=== PATIENT | male | born 1960 | race Native Hawaiian/Other Pacific Islander ===

== ENCOUNTER 2017-12-15 21:21 | Inpatient (IN) | payer OTHER ==
[2017-12-15 22:02] LABS: BASO # 0.1 K/uL (0.0-0.2); BASO % 1.1 % (0.0-2.0); EOS # 0.2 K/uL (0.0-0.7); EOS % 2.1 % (0.0-4.0); HEMOGLOBIN 16.1 g/dL (12.0-18.0); LYMPH # 2.2 K/uL (1.0-4.3); LYMPH % 26.4 % (20.0-40.0); MEAN CELL VOLUME 89.4 fL (80.0-94.0); MEAN CORPUSCULAR HEMOGLOBIN 31.6 pg (27.0-31.0); MEAN CORPUSCULAR HGB CONC 35.4 g/dL (33.0-37.0); MEAN PLATELET VOLUME 8.3 fL (7.2-11.7); MONO # 0.8 K/uL (0.0-0.8); MONO % 9.5 % (0.0-10.0); NEUT # 5.1 K/uL (1.8-7.0); NEUT % 60.9 % (50.0-75.0); NRBC % 0.2 % (0.0-2.0); RBC 5.1 Mil/uL (4.40-5.90); WHITE BLOOD COUNT 8.3 K/uL (4.8-10.8)
[2017-12-15] MEDS ORDERED: Sodium Chloride 0.9% 1,000 ML IV STA (22:07)
[2017-12-15 22:09] LABS: PROTHROMBIN TIME 11.3 SECONDS (9.7-12.2)
[2017-12-15 22:16] LABS: ALB/GLOB RATIO 1.1 (1.0-2.1); ALBUMIN 4.5 g/dL (3.5-5.0); ALT/SGPT 10 U/L (21-72); AST/SGOT 35 U/L (17-59); BLOOD UREA NITROGEN 14 mg/dL (9-20); CALCIUM 9.2 mg/dl (8.6-10.4); GFR AFRICAN-AMERICAN > 60; GFR NON-AFRICAN AMERICAN > 60
--- NOTE | 2017-12-15 22:49 | CT ---
EXAM: CT Head Without Intravenous Contrast EXAM DATE/TIME: 12/15/2017 9:48 PM CLINICAL HISTORY: 57 years old, male; Signs and symptoms; Altered mental status/memory loss and syncope and collapse; Additional info: S/P seizure, AMS, signs of head injury. TECHNIQUE: Axial computed tomography images of the head/brain without intravenous contrast. All CT scans at this facility use one or more dose reduction techniques, viz.: automated exposure control; ma/kV adjustment per patient size (including targeted exams where dose is matched to indication; i.e. head); or iterative reconstruction technique. COMPARISON: Prior images are not available for review. FINDINGS: Brain: There is prominence of sulci, gyri and ventricles. There is no midline shift. There is right temporal encephalomalacia with compensatory dilatation of the temporal horn of the right lateral ventricle.. There are no intra-axial or extra axial mass lesions or areas of hemorrhage. Bernstein-white differentiation is maintained. Ventricles: See above Bony structures: Cranial vault is intact. Soft tissues: unremarkable Sinuses: There is mucoperiosteal thickening in the maxillary sinuses left greater than right region there is mild mucoperiosteal thickening in ethmoid and frontal sinuses. Ears and mastoids: Middle ears are unremarkable. Mastoids are incompletely pneumatized. Orbits: Orbital contents are unremarkable. IMPRESSION: Mild atrophy; right temporal encephalomalacia; no bleed; sinus disease
[2017-12-15 22:50] LABS: SPERM URINE FEW /hpf; SQUAMOUS EPITHIAL < 1 /hpf (0-5); URINE BACTERIA FEW (<OCC); URINE BILIRUBIN NEGATIVE (NEGATIVE); URINE CLARITY Clear (Clear); URINE COLOR Yellow (YELLOW); URINE GLUCOSE (UA) NORMAL (Normal); URINE LEUKOCYTE ESTERASE NEG Leu/uL (Negative); URINE PROTEIN NEGATIVE (NEGATIVE); URINE UROBILINOGEN NORMAL mg/dL (0.2-1.0)
[2017-12-15 22:54] LABS: URINE BLOOD TRACE (NEGATIVE)
[2017-12-15 22:59] LABS: BARBITURATES, UR NEGATIVE (NEGATIVE); BENZODIAZEPINES, UR NEGATIVE (NEGATIVE); OPIATES, UR NEGATIVE (NEGATIVE); PHENCYCLIDINE, UR NEGATIVE (NEGATIVE)
--- NOTE | 2017-12-16 00:37 | C.PDOC ---
Time Seen by Provider: 12/15/17 21:40 Chief Complaint (Nursing): Seizure History Per: Patient, EMS History/Exam Limitations: clinical condition Recent Seizure Activity Began: Just Before Arrival Length Of Seizures (Duration): Unknown Quality Of Seizure: Generalized Post-ictal Period: Yes Severity: Severe Additional History Per: Prior Records Past Medical History Reviewed: Historical Data, Nursing Documentation, Vital Signs Vital Signs: Last Vital Signs Temp 97.4 F L 12/15/17 21:42 Pulse 121 H 12/15/17 21:42 Resp 20 12/15/17 21:42 BP 130/84 12/15/17 21:42 Pulse Ox 95 12/16/17 01:01 - Medical History PMH: CVA (Hemorrhagic?), Seizures Family History: States: Unknown Family Hx - Social History Hx Alcohol Use: Yes Hx Substance Use: No - Immunization History Hx Tetanus Toxoid Vaccination: No Hx Influenza Vaccination: No Hx Pneumococcal Vaccination: No Review Of Systems Review Of Systems: ROS cannot be obtained secondary to pt's inabilty to answer questions. Physical Exam - Physical Exam Appears: Toxic, Confused Skin: Diaphoretic Head: Other (Right frontal contusions) Eye(s): bilateral: PERRL, EOMI Neck: Normal ROM, No Midline Cervical Tenderness, No Step Off Deformity, Supple Cardiovascular: Rhythm Regular Respiratory: Normal Breath Sounds, No Accessory Muscle Use Gastrointestinal/Abdominal: Soft Extremity: Normal ROM, No Deformity, Other (abrasion on right hand) Neurological/Psych: Inappropriate Response To Command, Other (Moving all extremities) ED Course And Treatment - Laboratory Results Result Diagrams: 12/15/17 21:55 12/15/17 21:55 ECG: Interpreted By Me, Viewed By Me ECG Rhythm: Sinus Tachycardia, Nonspecific Changes Rate From EC O2 Sat by Pulse Oximetry: 95 Pulse Ox Interpretation: Normal - CT Scan/US CT head Other Rad Studies (CT/US): Read By Radiologist, Radiology Report Reviewed CT/US Interpretation: IMPRESSION: Mild atrophy; right temporal encephalomalacia ; no bleed; sinus. disease Progress Note: Dr. Alfaro (conservation or heritage architect Neurologist) contacted but she did not call back yet. Pt is now answering questions more appropriately, however he is still disoriented to time and has trouble with memory. Reevaluation Time: 01:00 Reassessment Condition: Improved - Physician Consult Information Physician Contacted: Derrek Hussein Outcome Of Conversation: He states that he is not available for consultation. Progress - Interventions Interventions:: Observation, Intravenous fluid - Data Reviewed Data Reviewed: Lab, Diagnostic imaging, EKG, Old records - Patient Status Patient status: Partially improved - Continuity of Care Discussed patient case with:: Patient, ED Nurse, Covering for PMD Disposition Discussed With DrLissy: Yvon Chowdhury Comment: He accepted pt on hospitalist service as pt's PMD is Dr. Ronen Angel. Doctor Will See Patient In The: Hospital Counseled Patient/Family Regarding: Studies Performed, Diagnosis - Disposition Disposition: HOSPITALIZED Disposition Time: 01:00 Condition: FAIR - Clinical Impression Clinical Impression: Post-ictal state, Seizure, Encephalomalacia on imaging study
[2017-12-16] MEDS ORDERED: Thiamine 100 mg/ml Inj IV STA (02:07)
--- NOTE | 2017-12-16 02:10 | CP.PCM.HP ---
<TessaJulio - Last Filed: 12/16/17 03:04> History of Present Illness - History of Present Illness History of Present Illness: CC: brought in by EMS for seizure activity PMD: Dr. Daniels on [facility] This patient is a 57yo M w/ a PMhx of hemorrhagic stroke, diagnosed at [facility], that was transferred to another center for treatment in 2016. Since then, he has not been on any medications as per the patient. He states that he drinks every day, 120oz of vodka, and 4-6 beers. He states the last thing he remembers before "waking up" in the hospital was drinking beers on Tuesday (it is now Tuesday at 1:50am seeing the patient). He states he has never had a seizure before...but upon further questioning he said he had one "a very long time ago" . The patient is extremely tangential. he is admitting to right arm pain, which he states started when he was working out. He works as a liquor delivery professional, walking deliveries only. I spoke to the roommate who states he drinks every day , and remembers seeing him leave for work around 4pm on 12/15 and was reportedly acting normally. He currently denies fevers/chills, PASCUAL, CP, SOB, abdominal pain, N/V/D, dysuria/freq/urg or lower extremity pain/swelling PMhx: Hemorrhagic stroke 2016 Meds: denies Surgeries: Denies allergies: denies FamHx: DM? father, "with many problems" Social: Works as a liquor delivery professional; as per patient independent in all IADL and ADLs, uses chewing tobacco daily and cannot state amount, and 120oz of vodka and 4 beers every day. States last drink was Tuesday. Present on Admission - Present on Admission Any Indicators Present on Admission: Yes History of DVT/PE: No History of Uncontrolled Diabetes: No Urinary Catheter: No Decubitus Ulcer Present: No Past Patient History - Past Social History Smoking Status: Never Smoked - NEUROLOGICAL Hx Seizures: Yes - PSYCHIATRIC Hx Substance Use: No - SURGICAL HISTORY Hx Surgeries: No - ANESTHESIA Hx Anesthesia: No Meds Allergies/Adverse Reactions: Allergies Allergy/AdvReac Type Severity Reaction Status Date / Time No Known Allergies Allergy Verified 12/15/17 21:47 Physical Exam - Constitutional Appears: Non-toxic, No Acute Distress, Chronically Ill - Head Exam Additional comments: cuts on lips, gums are black, unkempt hair - Eye Exam Eye Exam: EOMI, PERRL. absent: Scleral icterus Pupil Exam: PERRL - ENT Exam ENT Exam: Mucous Membranes Moist - Neck Exam Neck exam: Positive for: Full Rom. Negative for: Lymphadenopathy - Respiratory Exam Respiratory Exam: Clear to Auscultation Bilateral, NORMAL BREATHING PATTERN. absent: Rales, Rhonchi, Wheezes - Cardiovascular Exam Cardiovascular Exam: REGULAR RHYTHM, +S1, +S2 - GI/Abdominal Exam GI & Abdominal Exam: Normal Bowel Sounds, Soft. absent: Organomegaly, Pulsatile Mass, Rebound, Rigid, Tenderness - Extremities Exam Extremities exam: Positive for: full ROM. Negative for: calf tenderness, joint swelling, tenderness - Back Exam Back exam: NORMAL INSPECTION. absent: CVA tenderness (L), CVA tenderness (R), vertebral tenderness - Neurological Exam Additional comments: patient is not responding appropriately to questions is extremely tangential remembers being at home drinking Tuesday (interview takes place on Tuesday) and does not remember how he got to the hospital states he was at [facility] for 3 months and cannot remember what for patient is only oriented to person - Psychiatric Exam Psychiatric exam: Flat Affect - Skin Skin Exam: Warm Results - Vital Signs Recent Vital Signs: Last Vital Signs Temp 97.4 F L 12/15/17 21:42 Pulse 121 H 12/15/17 21:42 Resp 20 12/15/17 21:42 BP 130/84 12/15/17 21:42 Pulse Ox 95 12/16/17 01:13 - Labs Result Diagrams: 12/15/17 21:55 12/15/17 21:55 Labs: Laboratory Results - last 24 hr 12/15/17 12/15/17 12/15/17 21:33 21:55 21:55 WBC 8.3 RBC 5.10 Hgb 16.1 Hct 45.7 MCV 89.4 D MCH 31.6 H MCHC 35.4 RDW 13.0 Plt Count 267 MPV 8.3 Neut % (Auto) 60.9 Lymph % (Auto) 26.4 [place] % (Auto) 9.5 Eos % (Auto) 2.1 Baso % (Auto) 1.1 Neut # (Auto) 5.1 Lymph # (Auto) 2.2 [place] # (Auto) 0.8 Eos # (Auto) 0.2 Baso # (Auto) 0.1 PT INR APTT Sodium 139 Potassium 4.6 Chloride 104 Carbon Dioxide 14 L Anion Gap 26 H BUN 14 Creatinine 1.2 Est GFR ( Amer) > 60 Est GFR (Non-Af Amer) > 60 POC Glucose (mg/dL) 146 H Random Glucose 170 H Calcium 9.2 Magnesium 2.0 Total Bilirubin 1.0 AST 35 ALT 10 L D Alkaline Phosphatase 68 Troponin I < 0.0120 Total Protein 8.6 H Albumin 4.5 Globulin 4.1 H Albumin/Globulin Ratio 1.1 Urine Color Urine Clarity Urine pH Ur Specific [place] Urine Protein Urine Glucose (UA) Urine Ketones Urine Blood Urine Nitrate Urine Bilirubin Urine Urobilinogen Ur Leukocyte Esterase Urine WBC (Auto) Urine RBC (Auto) Ur Squamous Epith Cells Urine Bacteria Urine Sperm (Auto) Urine Opiates Screen Urine Methadone Screen Ur Barbiturates Screen Phenytoin Ur Phencyclidine Scrn Ur Amphetamines Screen U Benzodiazepines Scrn U Oth Cocaine Metabols U Cannabinoids Screen Alcohol, Quantitative < 10 12/15/17 12/15/17 12/15/17 21:55 21:55 22:35 WBC RBC Hgb Hct MCV MCH MCHC RDW Plt Count MPV Neut % (Auto) Lymph % (Auto) [place] % (Auto) Eos % (Auto) Baso % (Auto) Neut # (Auto) Lymph # (Auto) [place] # (Auto) Eos # (Auto) Baso # (Auto) PT 11.3 INR 1.0 APTT 28 Sodium Potassium Chloride Carbon Dioxide Anion Gap BUN Creatinine Est GFR ( Amer) Est GFR (Non-Af Amer) POC Glucose (mg/dL) Random Glucose Calcium Magnesium Total Bilirubin AST ALT Alkaline Phosphatase Troponin I Total Protein Albumin Globulin Albumin/Globulin Ratio Urine Color Yellow Urine Clarity Clear Urine pH 5.0 Ur Specific [place] 1.019 Urine Protein Negative Urine Glucose (UA) Normal Urine Ketones Negative Urine Blood Trace H Urine Nitrate Negative Urine Bilirubin Negative Urine Urobilinogen Normal Ur Leukocyte Esterase Neg Urine WBC (Auto) 1 Urine RBC (Auto) < 1 Ur Squamous Epith Cells < 1 Urine Bacteria Few H Urine Sperm (Auto) Few H Urine Opiates Screen Urine Methadone Screen Ur Barbiturates Screen Phenytoin < 3.0 L Ur Phencyclidine Scrn Ur Amphetamines Screen U Benzodiazepines Scrn U Oth Cocaine Metabols U Cannabinoids Screen Alcohol, Quantitative 12/15/17 22:35 WBC RBC Hgb Hct MCV MCH MCHC RDW Plt Count MPV Neut % (Auto) Lymph % (Auto) [place] % (Auto) Eos % (Auto) Baso % (Auto) Neut # (Auto) Lymph # (Auto) [place] # (Auto) Eos # (Auto) Baso # (Auto) PT INR APTT Sodium Potassium Chloride Carbon Dioxide Anion Gap BUN Creatinine Est GFR ( Amer) Est GFR (Non-Af Amer) POC Glucose (mg/dL) Random Glucose Calcium Magnesium Total Bilirubin AST ALT Alkaline Phosphatase Troponin I Total Protein Albumin Globulin Albumin/Globulin Ratio Urine Color Urine Clarity Urine pH Ur Specific [place] Urine Protein Urine Glucose (UA) Urine Ketones Urine Blood Urine Nitrate Urine Bilirubin Urine Urobilinogen Ur Leukocyte Esterase Urine WBC (Auto) Urine RBC (Auto) Ur Squamous Epith Cells Urine Bacteria Urine Sperm (Auto) Urine Opiates Screen Negative Urine Methadone Screen Negative Ur Barbiturates Screen Negative Phenytoin Ur Phencyclidine Scrn Negative Ur Amphetamines Screen Negative U Benzodiazepines Scrn Negative U Oth Cocaine Metabols Negative U Cannabinoids Screen Negative Alcohol, Quantitative Assessment & Plan - Assessment and Plan (Free Text) Assessment: 57yo M admitted for seizure activity New onset Seizures -consult Dr. Alfaro; appreciate recs -EEG; f/u results -seizure precautions Previous hemorrhagic stroke -patient is not on any medications currently for BP -no acute bleed on CT at this time AMS -RPR, HIV, vitamin profiles -CMP WNL glucose WNL -thiamine and folate daily; patient is daily heavy drinker -CIWA protocol -Librium PRN Q2H for EtOH withdrawal EtOH abuse/withdrawal -Librium PRN for EtOH -thiamine/folate daily Proph -does not need GI prophylaxis -SCDs -PT eval and treat Discussed and seen with Dr. Trenton Avila PGY2 Decision To Admit - Pt Status Changed To: Hospital Disposition Of: Inpatient - Admit Certification Admit to Inpatient:: After my assessment, the patient will require hospitalization for at least two midnights. This is because of the severity of symptoms shown, intensity of services needed, and/or the medical risk in this patient being treated as an outpatient. - InPatient: Physician Admission Certification:: patient will need more than 2 midnights` - . Bed Request Type: Regular Admitting Physician: Yvon Chowdhury <Yvon Chowdhury - Last Filed: 12/16/17 07:33> Results - Vital Signs Recent Vital Signs: Last Vital Signs Temp 97.4 F L 12/15/17 21:42 Pulse 63 12/16/17 06:48 Resp 16 12/16/17 06:48 BP 146/85 12/16/17 06:48 Pulse Ox 100 12/16/17 06:48 - Labs Result Diagrams: 12/15/17 21:55 12/15/17 21:55 Labs: Laboratory Results - last 24 hr 12/15/17 12/15/17 12/15/17 21:33 21:55 21:55 WBC 8.3 RBC 5.10 Hgb 16.1 Hct 45.7 MCV 89.4 D MCH 31.6 H MCHC 35.4 RDW 13.0 Plt Count 267 MPV 8.3 Neut % (Auto) 60.9 Lymph % (Auto) 26.4 [place] % (Auto) 9.5 Eos % (Auto) 2.1 Baso % (Auto) 1.1 Neut # (Auto) 5.1 Lymph # (Auto) 2.2 [place] # (Auto) 0.8 Eos # (Auto) 0.2 Baso # (Auto) 0.1 PT INR APTT Sodium 139 Potassium 4.6 Chloride 104 Carbon Dioxide 14 L Anion Gap 26 H BUN 14 Creatinine 1.2 Est GFR ( Amer) > 60 Est GFR (Non-Af Amer) > 60 POC Glucose (mg/dL) 146 H Random Glucose 170 H Calcium 9.2 Magnesium 2.0 Total Bilirubin 1.0 AST 35 ALT 10 L D Alkaline Phosphatase 68 Total Creatine Kinase Troponin I < 0.0120 Total Protein 8.6 H Albumin 4.5 Globulin 4.1 H Albumin/Globulin Ratio 1.1 Triglycerides Cholesterol LDL Cholesterol Direct HDL Cholesterol Folate TSH 3rd Generation Urine Color Urine Clarity Urine pH Ur Specific [place] Urine Protein Urine Glucose (UA) Urine Ketones Urine Blood Urine Nitrate Urine Bilirubin Urine Urobilinogen Ur Leukocyte Esterase Urine WBC (Auto) Urine RBC (Auto) Ur Squamous Epith Cells Urine Bacteria Urine Sperm (Auto) Urine Opiates Screen Urine Methadone Screen Ur Barbiturates Screen Phenytoin Ur Phencyclidine Scrn Ur Amphetamines Screen U Benzodiazepines Scrn U Oth Cocaine Metabols U Cannabinoids Screen Alcohol, Quantitative < 10 Hepatitis A IgM Ab Hep Bs Antigen Hep B Core IgM Ab Hepatitis C Antibody HIV 1&2 Antibody Screen 12/15/17 12/15/17 12/15/17 21:55 21:55 22:35 WBC RBC Hgb Hct MCV MCH MCHC RDW Plt Count MPV Neut % (Auto) Lymph % (Auto) [place] % (Auto) Eos % (Auto) Baso % (Auto) Neut # (Auto) Lymph # (Auto) [place] # (Auto) Eos # (Auto) Baso # (Auto) PT 11.3 INR 1.0 APTT 28 Sodium Potassium Chloride Carbon Dioxide Anion Gap BUN Creatinine Est GFR ( Amer) Est GFR (Non-Af Amer) POC Glucose (mg/dL) Random Glucose Calcium Magnesium Total Bilirubin AST ALT Alkaline Phosphatase Total Creatine Kinase Troponin I Total Protein Albumin Globulin Albumin/Globulin Ratio Triglycerides Cholesterol LDL Cholesterol Direct HDL Cholesterol Folate TSH 3rd Generation Urine Color Yellow Urine Clarity Clear Urine pH 5.0 Ur Specific [place] 1.019 Urine Protein Negative Urine Glucose (UA) Normal Urine Ketones Negative Urine Blood Trace H Urine Nitrate Negative Urine Bilirubin Negative Urine Urobilinogen Normal Ur Leukocyte Esterase Neg Urine WBC (Auto) 1 Urine RBC (Auto) < 1 Ur Squamous Epith Cells < 1 Urine Bacteria Few H Urine Sperm (Auto) Few H Urine Opiates Screen Urine Methadone Screen Ur Barbiturates Screen Phenytoin < 3.0 L Ur Phencyclidine Scrn Ur Amphetamines Screen U Benzodiazepines Scrn U Oth Cocaine Metabols U Cannabinoids Screen Alcohol, Quantitative Hepatitis A IgM Ab Hep Bs Antigen Hep B Core IgM Ab Hepatitis C Antibody HIV 1&2 Antibody Screen 12/15/17 12/16/17 12/16/17 22:35 05:51 05:51 WBC RBC Hgb Hct MCV MCH MCHC RDW Plt Count MPV Neut % (Auto) Lymph % (Auto) [place] % (Auto) Eos % (Auto) Baso % (Auto) Neut # (Auto) Lymph # (Auto) [place] # (Auto) Eos # (Auto) Baso # (Auto) PT INR APTT Sodium Potassium Chloride Carbon Dioxide Anion Gap BUN Creatinine Est GFR ( Amer) Est GFR (Non-Af Amer) POC Glucose (mg/dL) Random Glucose Calcium Magnesium Total Bilirubin AST ALT Alkaline Phosphatase Total Creatine Kinase Troponin I Total Protein Albumin Globulin Albumin/Globulin Ratio Triglycerides Cholesterol LDL Cholesterol Direct HDL Cholesterol Folate TSH 3rd Generation Urine Color Urine Clarity Urine pH Ur Specific [place] Urine Protein Urine Glucose (UA) Urine Ketones Urine Blood Urine Nitrate Urine Bilirubin Urine Urobilinogen Ur Leukocyte Esterase Urine WBC (Auto) Urine RBC (Auto) Ur Squamous Epith Cells Urine Bacteria Urine Sperm (Auto) Urine Opiates Screen Negative Urine Methadone Screen Negative Ur Barbiturates Screen Negative Phenytoin Ur Phencyclidine Scrn Negative Ur Amphetamines Screen Negative U Benzodiazepines Scrn Negative U Oth Cocaine Metabols Negative U Cannabinoids Screen Negative Alcohol, Quantitative Hepatitis A IgM Ab Negative Hep Bs Antigen Negative Hep B Core IgM Ab Negative Hepatitis C Antibody Negative HIV 1&2 Antibody Screen Negative 12/16/17 05:51 WBC RBC Hgb Hct MCV MCH MCHC RDW Plt Count MPV Neut % (Auto) Lymph % (Auto) [place] % (Auto) Eos % (Auto) Baso % (Auto) Neut # (Auto) Lymph # (Auto) [place] # (Auto) Eos # (Auto) Baso # (Auto) PT INR APTT Sodium Potassium Chloride Carbon Dioxide Anion Gap BUN Creatinine Est GFR ( Amer) Est GFR (Non-Af Amer) POC Glucose (mg/dL) Random Glucose Calcium Magnesium Total Bilirubin AST ALT Alkaline Phosphatase Total Creatine Kinase 546 H Troponin I Total Protein Albumin Globulin Albumin/Globulin Ratio Triglycerides 114 Cholesterol 249 H LDL Cholesterol Direct 194 H HDL Cholesterol 47 Folate > 20.0 TSH 3rd Generation 1.10 Urine Color Urine Clarity Urine pH Ur Specific [place] Urine Protein Urine Glucose (UA) Urine Ketones Urine Blood Urine Nitrate Urine Bilirubin Urine Urobilinogen Ur Leukocyte Esterase Urine WBC (Auto) Urine RBC (Auto) Ur Squamous Epith Cells Urine Bacteria Urine Sperm (Auto) Urine Opiates Screen Urine Methadone Screen Ur Barbiturates Screen Phenytoin Ur Phencyclidine Scrn Ur Amphetamines Screen U Benzodiazepines Scrn U Oth Cocaine Metabols U Cannabinoids Screen Alcohol, Quantitative Hepatitis A IgM Ab Hep Bs Antigen Hep B Core IgM Ab Hepatitis C Antibody HIV 1&2 Antibody Screen Attending/Attestation - Attestation I have personally seen and examined this patient.: Yes I have fully participated in the care of the patient.: Yes I have reviewed all pertinent clinical information: Yes Notes (Text): Assessment * Seizure episode, as per the patient prior episode before his hemorrhagic stroke, due to withdrawal from heavy alcoholism, alcoholism, alcohol withdrawal still suspected as patient had some temors, drinks about one large drink of hard liquor, and 2-4 beers, 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 Plan * Observe in tele, eeg, if eeg negative then antiseizure med debatable, but if + for epiletogenic focus then he will be candidate for anti seizure therapy. * Neurology consult * See orders for detail.
[2017-12-16] MEDS ORDERED: Thiamine 100 mg/ml Inj ONE (02:51)
[2017-12-16 06:15] LABS: HDL CHOLESTEROL 47 mg/dL (30-70)
[2017-12-16 06:19] LABS: LDL CHOLESTEROL 194 mg/dL (0-129)
[2017-12-16 06:39] LABS: HEPATITIS B SURFACE AG Negative (NEGATIVE)
[2017-12-16 06:45] LABS: HEPATITIS A IGM NEGATIVE (NEGATIVE); HEPATITIS B CORE AB NEGATIVE (NEGATIVE)
[2017-12-16 06:57] LABS: HEPATITIS C ANTIBODY NEGATIVE (NEGATIVE)
[2017-12-16 07:16] LABS: FOLATE > 20.0 ng/mL
--- NOTE | 2017-12-16 14:56 | CP.PCM.PN ---
<Niesha Shankar - Last Filed: 12/16/17 15:45> Subjective - Date & Time of Evaluation Date of Evaluation: 12/16/17 Time of Evaluation: 14:53 - Subjective Subjective: Patient seen and examined at bedside in ER early this morning before being taken upstairs. Patient was resting comfortably in bed smiling, saying he felt well. Patient immediately told me he was in [facility] as if he knew I was going to see if he was oriented and patient could state his name as well, however, when I asked him what day it was he started talking about vegetables and juice. Patient denied any fever, chills, chest pain, SOB, abdominal pain, N& V, diarrhea, constipation, lower extremity pain/swelling, and headaches. Unsure how reliable ROS is. Objective - Vital Signs/Intake and Output Vital Signs (last 24 hours): Temp Pulse Resp BP Pulse Ox 98.7 F 62 20 138/83 96 12/16/17 13:30 12/16/17 13:30 12/16/17 13:30 12/16/17 13:30 12/16/17 13:59 - Medications Medications: Current Medications Acetaminophen (Tylenol 325mg Tab) 650 mg PO Q6 PRN PRN Reason: Fever >100.4 F Chlordiazepoxide (Librium) 25 mg PO Q4H PRN PRN Reason: Tremors Cyanocobalamin (Vitamin B12 1000 Mcg Tab) 1,000 mcg PO DAILY [facility] Last Admin: 12/16/17 10:09 Dose: 1,000 mcg Folic Acid (Folic Acid) 1 mg PO DAILY [facility] Last Admin: 12/16/17 10:08 Dose: 1 mg Ondansetron HCl (Zofran Inj) 4 mg IVP Q6 PRN PRN Reason: Nausea/Vomiting Pneumococcal Polyvalent Vaccine (Pneumovax 23 Vaccine) 0.5 ml IM .ONCE ONE Stop: 12/19/17 10:01 Rosuvastatin Calcium (Crestor) 40 mg PO [facility] Thiamine HCl (Vitamin B1 Tab) 100 mg PO BID [facility] Last Admin: 12/16/17 10:09 Dose: 100 mg - Labs Labs: 12/15/17 21:55 12/15/17 21:55 PT 11.3 SECONDS (9.7-12.2) 12/15/17 21:55 INR 1.0 12/15/17 21:55 APTT 28 SECONDS (21-34) 12/15/17 21:55 - Constitutional Appears: Non-toxic, No Acute Distress, Confused - Head Exam Head Exam: ATRAUMATIC, NORMAL INSPECTION, NORMOCEPHALIC - Eye Exam Eye Exam: EOMI, Normal appearance, PERRL - ENT Exam ENT Exam: Mucous Membranes Moist - Neck Exam Neck Exam: Normal Inspection - Respiratory Exam Respiratory Exam: Clear to Ausculation Bilateral, NORMAL BREATHING PATTERN. absent: Rales, Rhonchi, Wheezes - Cardiovascular Exam Cardiovascular Exam: RRR, +S1, +S2. absent: Bradycardia, Tachycardia, Diastolic murmur, Gallop, Rubs, Murmur - GI/Abdominal Exam GI & Abdominal Exam: Soft, Normal Bowel Sounds. absent: Distended, Tenderness - Extremities Exam Extremities Exam: Normal Inspection. absent: Calf Tenderness, Pedal Edema - Neurological Exam Neurological Exam: Alert, Awake. absent: Oriented x3 Neuro motor strength exam: Left Upper Extremity: 5, Right Upper Extremity: 5, Left Lower Extremity: 5, Right Lower Extremity: 5 Additional comments: follows 1 step commands tangential speech - Psychiatric Exam Additional comments: seemed overly happy and confused - Skin Skin Exam: Dry, Intact, Normal Color, Warm Assessment and Plan - Assessment and Plan (Free Text) Plan: AMS * Psychiatry consult (Dr. Bellamy) - help appreciated * Neurology consult (Dr. Alfaro) - help appreciated * UDS negative * Alcohol level <10 * Phenytoin level <3 * RPR pending * HIV negative * Vitamin B12 <159 * Thiamine, folate, and B12 daily * Folate >20 * CMP WNL and not hypoglycemic * Lipid Panel: Trig 114 Chol 249 LDL 194 HDL 47 * Crestor 5 mg started * [facility] protocol * Librium PRN Q2H for EtOH withdrawal Questionable history of Seizures * Neurology consult (Dr. Alfaro) - help appreciated * EEG; f/u results * seizure precautions Previous hemorrhagic stroke * patient is not on any medications currently for BP * no acute bleed on CT at this time EtOH abuse/Potential withdrawal * Librium PRN for EtOH * thiamine/folate daily Prophylaxis * does not need GI prophylaxis * SCDs * PT eval and treat <Emmanuel Fuller - Last Filed: 12/16/17 18:38> Objective - Vital Signs/Intake and Output Vital Signs (last 24 hours): Temp Pulse Resp BP Pulse Ox 98.9 F 80 20 123/70 100 12/16/17 15:00 12/16/17 15:00 12/16/17 15:00 12/16/17 15:00 12/16/17 15:00 - Medications Medications: Current Medications Acetaminophen (Tylenol 325mg Tab) 650 mg PO Q6 PRN PRN Reason: Fever >100.4 F Chlordiazepoxide (Librium) 25 mg PO Q4H PRN PRN Reason: Tremors Cyanocobalamin (Vitamin B12 1000 Mcg Tab) 1,000 mcg PO DAILY [facility] Last Admin: 12/16/17 10:09 Dose: 1,000 mcg Folic Acid (Folic Acid) 1 mg PO DAILY [facility] Last Admin: 12/16/17 10:08 Dose: 1 mg Ondansetron HCl (Zofran Inj) 4 mg IVP Q6 PRN PRN Reason: Nausea/Vomiting Pneumococcal Polyvalent Vaccine (Pneumovax 23 Vaccine) 0.5 ml IM .ONCE ONE Stop: 12/19/17 10:01 Rosuvastatin Calcium (Crestor) 10 mg PO [facility] Thiamine HCl (Vitamin B1 Tab) 100 mg PO BID [facility] Last Admin: 12/16/17 18:21 Dose: 100 mg - Labs Labs: 12/15/17 21:55 12/15/17 21:55 PT 11.3 SECONDS (9.7-12.2) 12/15/17 21:55 INR 1.0 12/15/17 21:55 APTT 28 SECONDS (21-34) 12/15/17 21:55 Attending/Attestation - Attestation I have personally seen and examined this patient.: Yes I have fully participated in the care of the patient.: Yes I have reviewed all pertinent clinical information, including history, physical exam and plan: Yes Notes (Text): 12/16/17 18:34 Patient was seen and examined at 4:00 PM Exam, assessment and plan were gone over with the resident. When he was asked what he remembers before coming to hospital he stated that he does not remember anything after Tuesday. When asked how he got the bruising (which appear to be rug cox) on his right frontal area and the left posterior lateral wrist, he stated that he fell on Tuesday but then could not provide any details as to what he was doing or how he fell. He believes that he has been in the hospital since Tuesday. Although he identified that he is in a hospital, he can not provide details as to why he is here or how he came to be here. He could not provide accurate day, date, year. 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 Emmanuel Fuller D.O.
--- NOTE | 2017-12-16 16:59 | CP.PCM.CON ---
History of Present Illness - History of Present Illness History of Present Illness: is a 57 yr old right handed male who has a pmh of hemorrhagic stroke in 2016, alcoholism, who presented to [facility] with several breakthrought seizures. Patient states that he drinks daily with 120 ounces of vodka with 6 beers as well. The last thing he remembers is drinkin on Tuesday, as well as right arm pain. Of note, he works a liquor delivery nurse, walking deliveries daily. He was last seen leaving work on 12/15/17 and was acting normally, but now he is quite tangential. Denies headache, fever, blurriness of vision. PMhx: Hemorrhagic stroke 2016 Meds: denies Surgeries: Denies allergies: denies FamHx: DM? father, "with many problems" Social: Works as a liquor delivery nurse; as per patient independent in all IADL and ADLs, uses chewing tobacco daily and cannot state amount, and 120oz of vodka and 4 beers every day. States last drink was Tuesday. on exam: aaox3. Has difficulty with the year but corrects. PERRL. Cn 2-12 normal. no facial asymmetry. motor: tone strength normal. sensory: intact, ft, pin. Gait: wide based, no ataxia. bilateral tremor noted. symmetric reflexes. Past Patient History - Past Social History Smoking Status: Never Smoked - NEUROLOGICAL Hx Seizures: Yes - PSYCHIATRIC Hx Substance Use: No - SURGICAL HISTORY Hx Surgeries: No - ANESTHESIA Hx Anesthesia: No Meds Allergies/Adverse Reactions: Allergies Allergy/AdvReac Type Severity Reaction Status Date / Time No Known Allergies Allergy Verified 12/15/17 21:47 - Medications Medications: Current Medications Acetaminophen (Tylenol 325mg Tab) 650 mg PO Q6 PRN PRN Reason: Fever >100.4 F Chlordiazepoxide (Librium) 25 mg PO Q4H PRN PRN Reason: Tremors Cyanocobalamin (Vitamin B12 1000 Mcg Tab) 1,000 mcg PO DAILY [facility] Last Admin: 12/16/17 10:09 Dose: 1,000 mcg Folic Acid (Folic Acid) 1 mg PO DAILY [facility] Last Admin: 12/16/17 10:08 Dose: 1 mg Ondansetron HCl (Zofran Inj) 4 mg IVP Q6 PRN PRN Reason: Nausea/Vomiting Pneumococcal Polyvalent Vaccine (Pneumovax 23 Vaccine) 0.5 ml IM .ONCE ONE Stop: 12/19/17 10:01 Rosuvastatin Calcium (Crestor) 10 mg PO HS [facility] Thiamine HCl (Vitamin B1 Tab) 100 mg PO BID [facility] Last Admin: 12/16/17 10:09 Dose: 100 mg Results - Vital Signs Recent Vital Signs: Last Vital Signs Temp 98.9 F 12/16/17 15:00 Pulse 80 12/16/17 15:00 Resp 20 12/16/17 15:00 BP 123/70 12/16/17 15:00 Pulse Ox 100 12/16/17 15:00 - Labs Result Diagrams: 12/17/17 07:07 12/17/17 07:07 Labs: Laboratory Results - last 24 hr 12/15/17 12/15/17 12/15/17 21:33 21:55 21:55 WBC 8.3 RBC 5.10 Hgb 16.1 Hct 45.7 MCV 89.4 D MCH 31.6 H MCHC 35.4 RDW 13.0 Plt Count 267 MPV 8.3 Neut % (Auto) 60.9 Lymph % (Auto) 26.4 [place] % (Auto) 9.5 Eos % (Auto) 2.1 Baso % (Auto) 1.1 Neut # (Auto) 5.1 Lymph # (Auto) 2.2 [place] # (Auto) 0.8 Eos # (Auto) 0.2 Baso # (Auto) 0.1 PT INR APTT Sodium 139 Potassium 4.6 Chloride 104 Carbon Dioxide 14 L Anion Gap 26 H BUN 14 Creatinine 1.2 Est GFR ( Amer) > 60 Est GFR (Non-Af Amer) > 60 POC Glucose (mg/dL) 146 H Random Glucose 170 H Hemoglobin A1c Calcium 9.2 Magnesium 2.0 Total Bilirubin 1.0 AST 35 ALT 10 L D Alkaline Phosphatase 68 Total Creatine Kinase Troponin I < 0.0120 Total Protein 8.6 H Albumin 4.5 Globulin 4.1 H Albumin/Globulin Ratio 1.1 Triglycerides Cholesterol LDL Cholesterol Direct HDL Cholesterol Vitamin B12 Folate TSH 3rd Generation Urine Color Urine Clarity Urine pH Ur Specific Norman Urine Protein Urine Glucose (UA) Urine Ketones Urine Blood Urine Nitrate Urine Bilirubin Urine Urobilinogen Ur Leukocyte Esterase Urine WBC (Auto) Urine RBC (Auto) Ur Squamous Epith Cells Urine Bacteria Urine Sperm (Auto) Urine Opiates Screen Urine Methadone Screen Ur Barbiturates Screen Phenytoin Ur Phencyclidine Scrn Ur Amphetamines Screen U Benzodiazepines Scrn U Oth Cocaine Metabols U Cannabinoids Screen Alcohol, Quantitative < 10 Hepatitis A IgM Ab Hep Bs Antigen Hep B Core IgM Ab Hepatitis C Antibody HIV 1&2 Antibody Screen 12/15/17 12/15/17 12/15/17 21:55 21:55 22:35 WBC RBC Hgb Hct MCV MCH MCHC RDW Plt Count MPV Neut % (Auto) Lymph % (Auto) [place] % (Auto) Eos % (Auto) Baso % (Auto) Neut # (Auto) Lymph # (Auto) [place] # (Auto) Eos # (Auto) Baso # (Auto) PT 11.3 INR 1.0 APTT 28 Sodium Potassium Chloride Carbon Dioxide Anion Gap BUN Creatinine Est GFR ( Amer) Est GFR (Non-Af Amer) POC Glucose (mg/dL) Random Glucose Hemoglobin A1c Calcium Magnesium Total Bilirubin AST ALT Alkaline Phosphatase Total Creatine Kinase Troponin I Total Protein Albumin Globulin Albumin/Globulin Ratio Triglycerides Cholesterol LDL Cholesterol Direct HDL Cholesterol Vitamin B12 Folate TSH 3rd Generation Urine Color Yellow Urine Clarity Clear Urine pH 5.0 Ur Specific Norman 1.019 Urine Protein Negative Urine Glucose (UA) Normal Urine Ketones Negative Urine Blood Trace H Urine Nitrate Negative Urine Bilirubin Negative Urine Urobilinogen Normal Ur Leukocyte Esterase Neg Urine WBC (Auto) 1 Urine RBC (Auto) < 1 Ur Squamous Epith Cells < 1 Urine Bacteria Few H Urine Sperm (Auto) Few H Urine Opiates Screen Urine Methadone Screen Ur Barbiturates Screen Phenytoin < 3.0 L Ur Phencyclidine Scrn Ur Amphetamines Screen U Benzodiazepines Scrn U Oth Cocaine Metabols U Cannabinoids Screen Alcohol, Quantitative Hepatitis A IgM Ab Hep Bs Antigen Hep B Core IgM Ab Hepatitis C Antibody HIV 1&2 Antibody Screen 12/15/17 12/16/17 12/16/17 22:35 05:51 05:51 WBC RBC Hgb Hct MCV MCH MCHC RDW Plt Count MPV Neut % (Auto) Lymph % (Auto) [place] % (Auto) Eos % (Auto) Baso % (Auto) Neut # (Auto) Lymph # (Auto) [place] # (Auto) Eos # (Auto) Baso # (Auto) PT INR APTT Sodium Potassium Chloride Carbon Dioxide Anion Gap BUN Creatinine Est GFR ( Amer) Est GFR (Non-Af Amer) POC Glucose (mg/dL) Random Glucose Hemoglobin A1c Calcium Magnesium Total Bilirubin AST ALT Alkaline Phosphatase Total Creatine Kinase Troponin I Total Protein Albumin Globulin Albumin/Globulin Ratio Triglycerides Cholesterol LDL Cholesterol Direct HDL Cholesterol Vitamin B12 Folate TSH 3rd Generation Urine Color Urine Clarity Urine pH Ur Specific [place] Urine Protein Urine Glucose (UA) Urine Ketones Urine Blood Urine Nitrate Urine Bilirubin Urine Urobilinogen Ur Leukocyte Esterase Urine WBC (Auto) Urine RBC (Auto) Ur Squamous Epith Cells Urine Bacteria Urine Sperm (Auto) Urine Opiates Screen Negative Urine Methadone Screen Negative Ur Barbiturates Screen Negative Phenytoin Ur Phencyclidine Scrn Negative Ur Amphetamines Screen Negative U Benzodiazepines Scrn Negative U Oth Cocaine Metabols Negative U Cannabinoids Screen Negative Alcohol, Quantitative Hepatitis A IgM Ab Negative Hep Bs Antigen Negative Hep B Core IgM Ab Negative Hepatitis C Antibody Negative HIV 1&2 Antibody Screen Negative 12/16/17 12/16/17 12/16/17 05:51 05:51 16:16 WBC RBC Hgb Hct MCV MCH MCHC RDW Plt Count MPV Neut % (Auto) Lymph % (Auto) [place] % (Auto) Eos % (Auto) Baso % (Auto) Neut # (Auto) Lymph # (Auto) [place] # (Auto) Eos # (Auto) Baso # (Auto) PT INR APTT Sodium Potassium Chloride Carbon Dioxide Anion Gap BUN Creatinine Est GFR ( Amer) Est GFR (Non-Af Amer) POC Glucose (mg/dL) 93 Random Glucose Hemoglobin A1c 5.6 Calcium Magnesium Total Bilirubin AST ALT Alkaline Phosphatase Total Creatine Kinase 546 H Troponin I Total Protein Albumin Globulin Albumin/Globulin Ratio Triglycerides 114 Cholesterol 249 H LDL Cholesterol Direct 194 H HDL Cholesterol 47 Vitamin B12 < 159 L Folate > 20.0 TSH 3rd Generation 1.10 Urine Color Urine Clarity Urine pH Ur Specific [place] Urine Protein Urine Glucose (UA) Urine Ketones Urine Blood Urine Nitrate Urine Bilirubin Urine Urobilinogen Ur Leukocyte Esterase Urine WBC (Auto) Urine RBC (Auto) Ur Squamous Epith Cells Urine Bacteria Urine Sperm (Auto) Urine Opiates Screen Urine Methadone Screen Ur Barbiturates Screen Phenytoin Ur Phencyclidine Scrn Ur Amphetamines Screen U Benzodiazepines Scrn U Oth Cocaine Metabols U Cannabinoids Screen Alcohol, Quantitative Hepatitis A IgM Ab Hep Bs Antigen Hep B Core IgM Ab Hepatitis C Antibody HIV 1&2 Antibody Screen - Imaging and Cardiology CT scan - head Status: Image reviewed by me Additional comment: ct head shows right temporal encephalomalacia, no stroke, no hemorrhage. Assessment & Plan - Assessment and Plan (Free Text) Assessment: 57 yr old male with baseline focus of intracerebral pathology who would benefit from starting antiepileptic medications. i will recommend starting depakote at 500 mg bid, and load today with IV 1000 mg depakote one time. This should control his epilepsy. In terms of managing alcohol withdrawal will defer to the medical team. Plan: 1. Continue depakote 500 mg bid 2. EEG on Tuesday. DR. Dominic MD, DPN
--- NOTE | 2017-12-16 23:28 | CARD ---
APPROVED REPORT EKG Measurement Heart [id number] ID [id number] <Conclusion> Sinus tachycardia Possible Left atrial enlargement Borderline ECG
[2017-12-17 07:23] LABS: BASO % 0.8 % (0.0-2.0); EOS # 0.1 K/uL (0.0-0.7); EOS % 1.4 % (0.0-4.0); HEMOGLOBIN 15.6 g/dL (12.0-18.0); LYMPH # 1.3 K/uL (1.0-4.3); LYMPH % 22.8 % (20.0-40.0); MEAN CELL VOLUME 88.7 fL (80.0-94.0); MEAN CORPUSCULAR HEMOGLOBIN 31.6 pg (27.0-31.0); MEAN CORPUSCULAR HGB CONC 35.6 g/dL (33.0-37.0); MEAN PLATELET VOLUME 8.4 fL (7.2-11.7); MONO # 0.6 K/uL (0.0-0.8); MONO % 9.7 % (0.0-10.0); NEUT # 3.8 K/uL (1.8-7.0); NEUT % 65.3 % (50.0-75.0); RBC 4.93 Mil/uL (4.40-5.90); RED CELL DISTRIBUTION WIDTH 13.2 % (11.5-14.5); WHITE BLOOD COUNT 5.9 K/uL (4.8-10.8)
[2017-12-17 07:29] LABS: PROTHROMBIN TIME 11.3 SECONDS (9.7-12.2)
[2017-12-17 07:42] LABS: ALB/GLOB RATIO 1.1 (1.0-2.1); ALT/SGPT 14 U/L (21-72); AST/SGOT 29 U/L (17-59); BLOOD UREA NITROGEN 11 mg/dL (9-20); CALCIUM 9.1 mg/dl (8.6-10.4); GFR AFRICAN-AMERICAN > 60; GFR NON-AFRICAN AMERICAN > 60
[2017-12-17] MEDS ORDERED: Divalproex 500 mg DR Tab PO STA (14:29)
--- NOTE | 2017-12-17 16:44 | CP.PCM.PN ---
Addendum entered and electronically signed by Lisa Welch 12/17/17 16:50 : Right Hand Pain f/u hand xray Original Note: <Lisa Welch - Last Filed: 12/17/17 16:40> Subjective - Date & Time of Evaluation Date of Evaluation: 12/17/17 Time of Evaluation: 07:00 - Subjective Subjective: PGY1- Progress note Patient seen and examined at bedside with Dr. Fuller who speaks patient's [place] language. Patient is still confused and it takes multiple tries for patient to be able to say the date after it is told to him. 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 As per Dada, ever since patient's stroke 3 years ago patient is very forgetful and often doesn't answer appropriately to questions asked. Patient complains of right hand pain after his fall, but has full ROM. Patient denies any chest pain , shortness of breath, abdominal pain, nausea, vomiting, constipation, or diarrhea. Objective - Vital Signs/Intake and Output Vital Signs (last 24 hours): Temp Pulse Resp BP Pulse Ox 98.2 F 59 L 20 143/88 98 12/17/17 08:50 12/17/17 08:50 12/17/17 08:50 12/17/17 08:50 12/17/17 16:33 Intake and Output: 12/17/17 12/17/17 06:59 18:59 Intake Total 360 150 Output Total 250 Balance 110 150 - Medications Medications: Current Medications Acetaminophen (Tylenol 325mg Tab) 650 mg PO Q6 PRN PRN Reason: Fever >100.4 F Chlordiazepoxide (Librium) 25 mg PO Q4H PRN PRN Reason: Tremors Cyanocobalamin (Vitamin B12 1000 Mcg Tab) 1,000 mcg PO DAILY [facility] Last Admin: 12/17/17 10:23 Dose: 1,000 mcg Divalproex Sodium (Depakote Dr) 500 mg PO BID [facility] Folic Acid (Folic Acid) 1 mg PO DAILY [facility] Last Admin: 12/17/17 10:23 Dose: 1 mg Ondansetron HCl (Zofran Inj) 4 mg IVP Q6 PRN PRN Reason: Nausea/Vomiting Pneumococcal Polyvalent Vaccine (Pneumovax 23 Vaccine) 0.5 ml IM .ONCE ONE Stop: 12/19/17 10:01 Rosuvastatin Calcium (Crestor) 10 mg PO HS [facility] Last Admin: 12/16/17 21:12 Dose: 10 mg Thiamine HCl (Vitamin B1 Tab) 100 mg PO BID [facility] Last Admin: 12/17/17 10:22 Dose: 100 mg - Labs Labs: 12/17/17 07:07 12/17/17 07:07 PT 11.3 SECONDS (9.7-12.2) 12/17/17 07:07 INR 1.0 12/17/17 07:07 APTT 25 SECONDS (21-34) 12/17/17 07:07 - Additional Findings Additional findings: - Constitutional Appears: Non-toxic, No Acute Distress, Confused - Head Exam Head Exam: ATRAUMATIC, NORMAL INSPECTION, NORMOCEPHALIC - Eye Exam Eye Exam: EOMI, Normal appearance, PERRL - ENT Exam ENT Exam: Mucous Membranes Moist - Neck Exam Neck Exam: Normal Inspection - Respiratory Exam Respiratory Exam: Clear to Ausculation Bilateral, NORMAL BREATHING PATTERN. absent: Rales, Rhonchi, Wheezes - Cardiovascular Exam Cardiovascular Exam: RRR, +S1, +S2. absent: Bradycardia, Tachycardia, Diastolic murmur, Gallop, Rubs, Murmur - GI/Abdominal Exam GI & Abdominal Exam: Soft, Normal Bowel Sounds. absent: Distended, Tenderness - Extremities Exam Extremities Exam: Normal Inspection. absent: Calf Tenderness, Pedal Edema - Neurological Exam Neurological Exam: Alert, Awake. absent: Oriented x3 Neuro motor strength exam: Left Upper Extremity: 5, Right Upper Extremity: 5, Left Lower Extremity: 5, Right Lower Extremity: 5 Additional comments: follows 1 step commands tangential speech - Skin Skin Exam: Dry, Intact, Normal Color, Warm Assessment and Plan - Assessment and Plan (Free Text) Assessment: AMS * Psychiatry consult (Dr. Bellamy) - help appreciated * Neurology consult (Dr. Alfaro) - help appreciated * UDS negative * Alcohol level <10 * Phenytoin level <3 * RPR negative * HIV negative * Vitamin B12 <159 * Thiamine, folate, and B12 daily * Folate >20 * CMP WNL and not hypoglycemic * Lipid Panel: Trig 114 Chol 249 LDL 194 HDL 47 * Crestor 5 mg started * [facility] protocol * Librium PRN Q2H for EtOH withdrawal Questionable history of Seizures * Neurology consult (Dr. Alfaro) - help appreciated * As per Dr. Alfaro 1000mg loading dose of Depakote given on 12/17 * continue Depakote 500mg po BID * EEG on Tuesday * seizure precautions Previous hemorrhagic stroke * patient is not on any medications currently for BP * no acute bleed on CT at this time EtOH abuse/Potential withdrawal * Librium PRN for EtOH * thiamine/folate daily Prophylaxis * does not need GI prophylaxis * SCDs * PT eval and treat <Emmanuel Fuller - Last Filed: 12/17/17 17:35> Objective - Vital Signs/Intake and Output Vital Signs (last 24 hours): Temp Pulse Resp BP Pulse Ox 98.5 F 56 L 18 156/88 H 98 12/17/17 16:00 12/17/17 16:00 12/17/17 16:00 12/17/17 16:00 12/17/17 16:33 Intake and Output: 12/17/17 12/17/17 06:59 18:59 Intake Total 360 150 Output Total 250 Balance 110 150 - Medications Medications: Current Medications Acetaminophen (Tylenol 325mg Tab) 650 mg PO Q6 PRN PRN Reason: Fever >100.4 F Chlordiazepoxide (Librium) 25 mg PO Q4H PRN PRN Reason: Tremors Cyanocobalamin (Vitamin B12 1000 Mcg Tab) 1,000 mcg PO DAILY [facility] Last Admin: 12/17/17 10:23 Dose: 1,000 mcg Divalproex Sodium (Depakote Dr) 500 mg PO BID [facility] Folic Acid (Folic Acid) 1 mg PO DAILY [facility] Last Admin: 12/17/17 10:23 Dose: 1 mg Ondansetron HCl (Zofran Inj) 4 mg IVP Q6 PRN PRN Reason: Nausea/Vomiting Pneumococcal Polyvalent Vaccine (Pneumovax 23 Vaccine) 0.5 ml IM .ONCE ONE Stop: 12/19/17 10:01 Rosuvastatin Calcium (Crestor) 10 mg PO HS [facility] Last Admin: 12/16/17 21:12 Dose: 10 mg Thiamine HCl (Vitamin B1 Tab) 100 mg PO BID [facility] Last Admin: 12/17/17 10:22 Dose: 100 mg - Labs Labs: 12/17/17 07:07 12/17/17 07:07 PT 11.3 SECONDS (9.7-12.2) 12/17/17 07:07 INR 1.0 12/17/17 07:07 APTT 25 SECONDS (21-34) 12/17/17 07:07 Attending/Attestation - Attestation I have personally seen and examined this patient.: Yes I have fully participated in the care of the patient.: Yes I have reviewed all pertinent clinical information, including history, physical exam and plan: Yes Notes (Text): 12/17/17 17:32 Patient was seen and examined with Resident Dr. Yash Welch Ordered Depakote 1,000 mg PO x 1 dose for today and 500 mg PO 2x/day starting 12/18/17. F/U Right Hand X Ray: this was ordered (despite full range of motion and NO edema and NO pain to palpation) due to patient's repeated focusing on this hand during the exam. We will discharge patient on 12/18/17 as long as he continues to be stable. Emmanuel Fuller D.O.
[2017-12-18 01:55] VITALS: RESP 20
[2017-12-18 06:59] LABS: BASO # 0.1 K/uL (0.0-0.2); BASO % 0.9 % (0.0-2.0); EOS # 0.1 K/uL (0.0-0.7); EOS % 1.8 % (0.0-4.0); HEMOGLOBIN 15.3 g/dL (12.0-18.0); LYMPH # 1.7 K/uL (1.0-4.3); LYMPH % 22.2 % (20.0-40.0); MEAN CELL VOLUME 89.2 fL (80.0-94.0); MEAN CORPUSCULAR HGB CONC 34.8 g/dL (33.0-37.0); MEAN PLATELET VOLUME 8.5 fL (7.2-11.7); MONO # 0.7 K/uL (0.0-0.8); MONO % 8.7 % (0.0-10.0); NEUT % 66.4 % (50.0-75.0); NRBC % 0.1 % (0.0-2.0); RBC 4.92 Mil/uL (4.40-5.90); RED CELL DISTRIBUTION WIDTH 13.3 % (11.5-14.5); WHITE BLOOD COUNT 7.6 K/uL (4.8-10.8)
[2017-12-18 07:32] LABS: ALB/GLOB RATIO 1.1 (1.0-2.1); ALBUMIN 3.9 g/dL (3.5-5.0); ALT/SGPT 12 U/L (21-72); AST/SGOT 26 U/L (17-59); BLOOD UREA NITROGEN 15 mg/dL (9-20); CALCIUM 9.1 mg/dl (8.6-10.4); GFR AFRICAN-AMERICAN > 60; GFR NON-AFRICAN AMERICAN > 60
--- NOTE | 2017-12-18 09:04 | CP.PCM.PN ---
<Lisa Welch - Last Filed: 12/18/17 09:04> Subjective - Date & Time of Evaluation Date of Evaluation: 12/18/17 Time of Evaluation: 07:00 Objective - Vital Signs/Intake and Output Vital Signs (last 24 hours): Temp Pulse Resp BP Pulse Ox 97.3 F L 59 L 20 119/83 96 12/18/17 08:22 12/18/17 08:22 12/18/17 08:22 12/18/17 08:22 12/18/17 08:22 Intake and Output: 12/18/17 12/18/17 06:59 18:59 Intake Total 480 150 Balance 480 150 - Medications Medications: Current Medications Acetaminophen (Tylenol 325mg Tab) 650 mg PO Q6 PRN PRN Reason: Fever >100.4 F Chlordiazepoxide (Librium) 25 mg PO Q4H PRN PRN Reason: Tremors Cyanocobalamin (Vitamin B12 1000 Mcg Tab) 1,000 mcg PO DAILY [facility] Last Admin: 12/17/17 10:23 Dose: 1,000 mcg Divalproex Sodium (Depakote Dr) 500 mg PO BID [facility] Folic Acid (Folic Acid) 1 mg PO DAILY [facility] Last Admin: 12/17/17 10:23 Dose: 1 mg Ondansetron HCl (Zofran Inj) 4 mg IVP Q6 PRN PRN Reason: Nausea/Vomiting Pneumococcal Polyvalent Vaccine (Pneumovax 23 Vaccine) 0.5 ml IM .ONCE ONE Stop: 12/19/17 10:01 Rosuvastatin Calcium (Crestor) 10 mg PO HS [facility] Last Admin: 12/17/17 21:34 Dose: 10 mg Thiamine HCl (Vitamin B1 Tab) 100 mg PO BID [facility] Last Admin: 12/17/17 17:43 Dose: 100 mg - Labs Labs: 12/18/17 06:53 12/18/17 06:53 PT 11.3 SECONDS (9.7-12.2) 12/17/17 07:07 INR 1.0 12/17/17 07:07 APTT 25 SECONDS (21-34) 12/17/17 07:07 - Additional Findings Additional findings: - Constitutional Appears: Non-toxic, No Acute Distress, Confused - Head Exam Head Exam: ATRAUMATIC, NORMAL INSPECTION, NORMOCEPHALIC - Eye Exam Eye Exam: EOMI, Normal appearance, PERRL - ENT Exam ENT Exam: Mucous Membranes Moist - Neck Exam Neck Exam: Normal Inspection - Respiratory Exam Respiratory Exam: Clear to Ausculation Bilateral, NORMAL BREATHING PATTERN. absent: Rales, Rhonchi, Wheezes - Cardiovascular Exam Cardiovascular Exam: RRR, +S1, +S2. absent: Bradycardia, Tachycardia, Diastolic murmur, Gallop, Rubs, Murmur - GI/Abdominal Exam GI & Abdominal Exam: Soft, Normal Bowel Sounds. absent: Distended, Tenderness - Extremities Exam Extremities Exam: Normal Inspection. absent: Calf Tenderness, Pedal Edema - Neurological Exam Neurological Exam: Alert, Awake. absent: Oriented x3 Neuro motor strength exam: Left Upper Extremity: 5, Right Upper Extremity: 5, Left Lower Extremity: 5, Right Lower Extremity: 5 Additional comments: follows 1 step commands tangential speech - Skin Skin Exam: Dry, Intact, Normal Color, Warm Assessment and Plan - Assessment and Plan (Free Text) Assessment: AMS * Psychiatry consult (Dr. Bellamy) - help appreciated * Neurology consult (Dr. Alfaro) - help appreciated * UDS negative * Alcohol level <10 * Phenytoin level <3 * RPR negative * HIV negative * Vitamin B12 <159 * Thiamine, folate, and B12 daily * Folate >20 * CMP WNL and not hypoglycemic * Lipid Panel: Trig 114 Chol 249 LDL 194 HDL 47 * Crestor 5 mg started * [facility] protocol * Librium PRN Q2H for EtOH withdrawal Questionable history of Seizures * Neurology consult (Dr. Alfaro) - help appreciated * As per Dr. Alfaro 1000mg loading dose of Depakote given on 12/17 * continue Depakote 500mg po BID * f/u Valproic acid level * EEG on Tuesday * seizure precautions Previous hemorrhagic stroke * patient is not on any medications currently for BP * no acute bleed on CT at this time EtOH abuse/Potential withdrawal * Librium PRN for EtOH * thiamine/folate daily Prophylaxis * does not need GI prophylaxis * SCDs * PT eval and treat <Emmanuel Fuller - Last Filed: 12/18/17 10:20> Subjective - Subjective Subjective: . Objective - Vital Signs/Intake and Output Vital Signs (last 24 hours): Temp Pulse Resp BP Pulse Ox 97.3 F L 59 L 20 119/83 96 12/18/17 08:22 12/18/17 08:22 12/18/17 08:22 12/18/17 08:22 12/18/17 08:22 Intake and Output: 12/18/17 12/18/17 06:59 18:59 Intake Total 480 150 Balance 480 150 - Medications Medications: Current Medications Acetaminophen (Tylenol 325mg Tab) 650 mg PO Q6 PRN PRN Reason: Fever >100.4 F Chlordiazepoxide (Librium) 25 mg PO Q4H PRN PRN Reason: Tremors Cyanocobalamin (Vitamin B12 1000 Mcg Tab) 1,000 mcg PO DAILY [facility] Divalproex Sodium (Depakote Dr) 500 mg PO BID [facility] Folic Acid (Folic Acid) 1 mg PO DAILY [facility] Last Admin: 12/18/17 09:14 Dose: 1 mg Ondansetron HCl (Zofran Inj) 4 mg IVP Q6 PRN PRN Reason: Nausea/Vomiting Pneumococcal Polyvalent Vaccine (Pneumovax 23 Vaccine) 0.5 ml IM .ONCE ONE Stop: 12/19/17 10:01 Rosuvastatin Calcium (Crestor) 10 mg PO HS [facility] Last Admin: 12/17/17 21:34 Dose: 10 mg Thiamine HCl (Vitamin B1 Tab) 100 mg PO DAILY [facility] - Labs Labs: 12/18/17 06:53 12/18/17 06:53 PT 11.3 SECONDS (9.7-12.2) 12/17/17 07:07 INR 1.0 12/17/17 07:07 APTT 25 SECONDS (21-34) 12/17/17 07:07 Attending/Attestation - Attestation I have personally seen and examined this patient.: Yes I have fully participated in the care of the patient.: Yes I have reviewed all pertinent clinical information, including history, physical exam and plan: Yes Notes (Text): 12/18/17 10:03 Hospitalist Progress Note Patient was seen and examined at 9:50 AM 12/18/17 356 B Upon FULL ROS NO dysphagia/odynopahgia NO soreness in throat NO cough/SOB NO sinus/nasal congestion NO fever/chills NO muscle aches/pains NO joint pain NO chest pain/palpations NO abdominal pain NO n/v/d/c NO burning pain with urination NO PASCUAL NO lightheadedness/dizziness NO paresthesias NO new changes in vision NO new changes in hearing Exam: General: AAOx3 (gives name, location, and date), NAD HEENT: NCA, Skin on Right Side of Head (frontal area) appears to have abrasions that have scabbed over and without any evidence of cellulitis, EOMI, PERRLA, NO cervical/supraclavicular/submandibular lymphadenopathy, NO pharyngeal erythema/ exudate, Nasal Turbinates are nonerythematous/nonedematous, Oral Mucosa is moist Cardio: NS1 and NS2, NO M/R/G Resp: CTA B/L, NO R/R/W GI: BSx4, Soft, NT, NO HSM, NO guarding/rebound tenderness Ext: Pulses are strong and equal, Capillary Refill is 2 seconds, NO edema Neuro: CN II through XII are grossly intact Assessments: 1). AMS likely Secondary to Seizure Spoke with his friend and employer at [employer] ([phone]) at length on 12/17/17 and he explained that the patient has a long history of forgetfullness/memory issues, taking time to answer questions, and stated that patient was "slow". I spoke with Mr. Caballero via patient's phone that was placed on speaker phone and Mr. Caballero explained that the patient was at his baseline mental status. Explained to patient and Mr. Caballero that he would likely be discharged on Tuesday12/19/17 after monitoring him after starting of antiseizure medication and after workup was complete (EEG). Loading dose of Depakote at 1,000 mg was given 12/17/17 and started on 500 mg PO 2x/day today 12/18/17 EEG to be performed 12/19/17 F/U with Neurology after EEG performance and if cleared, discharge him to home and notify [employer]ero ([phone]) who will come to car pick up driver patient 2). Hx Hemorrhagic CVA Crestor 10 mg PO HS NO ASA considering history of hemorrhagic CVA CT Head showed Right Temporal Encephalomalecia, volume loss, sinus disease (see full report) 3). ETOH Use/Potential Withdrawl Librium 25 mg PO Q4H PRN Folic Acid 1 mg PO 1x/day Thiamine 100 mg PO 1x/day MVI PO 1x/day NO signs of withdrawl on exam 4). Low Vitamine B12 Given IM 1,000 mcg in ER upon admission Vitamin B12 1,000 mcg PO 1x/day 5). 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 Caballero of witnessing seizure and EMS was called. CPK is trending down F/U level morning 12/19/17 6). Prophylaxis Tylenol 650 mg PO Q6H PRN Fever SCDs NO PPI or H2 issac indicated Counseled patient on discontinuing use of chewing tobacco F/U with Neurology after EEG performance and if cleared, discharge him to home and notify [employer]all[employer] ([phone]) who will come to car pick up driver patient. Please also provide information for AA meetings for patient upon discharge in addition to his medications. Emmanuel Fuller D.O.
--- NOTE | 2017-12-18 10:10 | RAD ---
PROCEDURE: Right hand dated by 12/17/2017 HISTORY: Status post fall, r/o fracture COMPARISON: None. FINDINGS: BONES: Note that there is artifact related to in situ angiocatheter overlying the base of the 5th metacarpal. There is slight irregularity of the base of the 5th metacarpal and/or of hamate bone. While this could be secondary to overlying artifact as mentioned above, repeat radiograph in 7-10 days recommend for further evaluation. If symptoms worsen, follow-up CT scan could be obtained. . JOINTS: Joint spaces appear relatively preserved. No significant osteoarthritis SOFT TISSUES: Normal. OTHER FINDINGS: None. IMPRESSION: Note that there is artifact related to in situ angiocatheter overlying the base of the 5th metacarpal. There is slight irregularity of the base of the 5th metacarpal and/or of hamate bone. While this could be secondary to overlying artifact as mentioned above, repeat radiograph in 7-10 days recommend for further evaluation. If symptoms worsen, follow-up CT scan could be obtained. .
[2017-12-18] MEDS: Multiple Vitamins Tab PO SCH (10:31)
[2017-12-18] MEDS: Divalproex 500 mg DR Tab PO SCH (17:33)
--- NOTE | 2017-12-19 05:51 | CP.PCM.PN ---
Subjective - Date & Time of Evaluation Date of Evaluation: 12/19/17 Time of Evaluation: 05:49 - Subjective Subjective: Mr. Fuller was seen and examined at the bedside. He remains alert, oriented in all spheres. He denies any headache, dizziness, lightheadedness. He is able to follow simple commands and moves all extremities spontaneously. He is on a telesitter for patient safety. There was no untoward events overnight. Objective - Vital Signs/Intake and Output Vital Signs (last 24 hours): Temp Pulse Resp BP Pulse Ox 98.6 F 60 20 145/85 95 12/19/17 00:58 12/19/17 00:58 12/19/17 00:58 12/19/17 00:58 12/19/17 00:58 Intake and Output: 12/18/17 12/19/17 18:59 06:59 Intake Total 450 300 Output Total 500 Balance 450 -200 - Medications Medications: Current Medications Acetaminophen (Tylenol 325mg Tab) 650 mg PO Q6 PRN PRN Reason: Fever >100.4 F Chlordiazepoxide (Librium) 25 mg PO Q4H PRN PRN Reason: Tremors Cyanocobalamin (Vitamin B12 1000 Mcg Tab) 1,000 mcg PO DAILY [facility] Last Admin: 12/18/17 10:31 Dose: 1,000 mcg Divalproex Sodium (Depakote Dr) 500 mg PO BID [facility] Last Admin: 12/18/17 17:33 Dose: 500 mg Folic Acid (Folic Acid) 1 mg PO DAILY [facility] Last Admin: 12/18/17 09:14 Dose: 1 mg Multivitamins (Hexavitamin) 1 tab PO DAILY [facility] Last Admin: 12/18/17 10:31 Dose: 1 tab Ondansetron HCl (Zofran Inj) 4 mg IVP Q6 PRN PRN Reason: Nausea/Vomiting Pneumococcal Polyvalent Vaccine (Pneumovax 23 Vaccine) 0.5 ml IM .ONCE ONE Stop: 12/19/17 10:01 Rosuvastatin Calcium (Crestor) 10 mg PO HS [facility] Last Admin: 12/18/17 22:11 Dose: 10 mg Thiamine HCl (Vitamin B1 Tab) 100 mg PO DAILY [facility] - Labs Labs: 12/18/17 06:53 12/18/17 06:53 PT 11.3 SECONDS (9.7-12.2) 12/17/17 07:07 INR 1.0 12/17/17 07:07 APTT 25 SECONDS (21-34) 12/17/17 07:07 - Constitutional Appears: No Acute Distress - Head Exam Head Exam: NORMAL INSPECTION - Neurological Exam Neurological Exam: Alert, Awake, Oriented x3 Neuro motor strength exam: Left Upper Extremity: 5, Right Upper Extremity: 5, Left Lower Extremity: 5, Right Lower Extremity: 5 Additional comments: He is alert, oriented, able to follow simple commands. Assessment and Plan (1) Seizure Assessment & Plan: Case discussed with Dr. Miner, continue all current medical regimen. Pending EEG and valproic level, if EEG is normal and valproic level is within normal limits, neurology is clearing him for discharge. Recommend to follow up with an outpatient neurologist. If patient does not have any neurologist, may follow up with Dr. Alfaro/ Kristofer at [address] [place] [address]. [address] [facility] [id number]. . Status: Acute
[2017-12-19 06:53] LABS: ALB/GLOB RATIO 1.1 (1.0-2.1); ALBUMIN 3.9 g/dL (3.5-5.0); ALT/SGPT 9 U/L (21-72); AST/SGOT 18 U/L (17-59); BLOOD UREA NITROGEN 13 mg/dL (9-20); CALCIUM 8.8 mg/dl (8.6-10.4); GFR AFRICAN-AMERICAN > 60; GFR NON-AFRICAN AMERICAN > 60
[2017-12-19 07:00] LABS: BASO % 0.6 % (0.0-2.0); EOS # 0.1 K/uL (0.0-0.7); EOS % 1.8 % (0.0-4.0); HEMOGLOBIN 15.6 g/dL (12.0-18.0); LYMPH # 1.3 K/uL (1.0-4.3); LYMPH % 19.8 % (20.0-40.0); MEAN CELL VOLUME 88.6 fL (80.0-94.0); MEAN CORPUSCULAR HEMOGLOBIN 31.5 pg (27.0-31.0); MEAN CORPUSCULAR HGB CONC 35.5 g/dL (33.0-37.0); MEAN PLATELET VOLUME 8.4 fL (7.2-11.7); MONO # 0.6 K/uL (0.0-0.8); MONO % 9.7 % (0.0-10.0); NEUT # 4.4 K/uL (1.8-7.0); NEUT % 68.1 % (50.0-75.0); NRBC % 0.2 % (0.0-2.0); RBC 4.96 Mil/uL (4.40-5.90); RED CELL DISTRIBUTION WIDTH 13.2 % (11.5-14.5); WHITE BLOOD COUNT 6.5 K/uL (4.8-10.8)
[2017-12-19 09:12] VITALS: BP 109/66; PULSE 61; TEMP 98; O2SAT 97
[2017-12-19] MEDS ORDERED: Pneumococcal 23-Valent Vaccine IM ONE (10:00)
[2017-12-19] MEDS: Divalproex 500 mg DR Tab PO SCH (10:25)
[2017-12-19] MEDS: Multiple Vitamins Tab PO SCH (10:25)
--- NOTE | 2017-12-19 10:59 | PCM.PSYCH ---
Initial Psychiatric Evaluation - Initial Psychiatric Evaluation Type of Admission: Voluntary Legal Status: Capacity Chief Complaint (in patient's own words): Alcohol History of Present Illness and Precipitating Events: 57 year old male presented to the hospital after falling and hitting his head last Tuesday, "blacking out", and then waking up on Tuesday. Patient was confused and did not know what caused him to fall and black out. Today pt was consulted. Patient has a history of alcohol use disorder. 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 Patient states that he drinks 120 oz of vodka as well as 4-6 beers/day. He reports irritable mood but denies any feelings of hopelessness and helplessness. Patient denies any SI/HI/AVH. PMH Patient has a history of hemorrhagic stroke in 2016. Current Medications: Active Medications Generic Name Dose Route Start Last Admin Trade Name Freq PRN Reason Stop Dose Admin Acetaminophen 650 mg 12/16/17 02:33 Tylenol 325mg Tab PO Q6 PRN Fever >100.4 F Chlordiazepoxide 25 mg 12/16/17 02:07 Librium PO Q4H PRN Tremors Cyanocobalamin 1,000 mcg 12/18/17 10:00 12/18/17 10:31 Vitamin B12 1000 Mcg Tab PO 1,000 mcg DAILY [facility] Administration Divalproex Sodium 500 mg 12/18/17 18:00 12/19/17 10:[address] PO 500 mg BID [facility] Administration Folic Acid 1 mg 12/16/17 10:00 12/19/17 10:25 Folic Acid PO 1 mg DAILY [facility] Administration Multivitamins 1 tab 12/18/17 10:15 12/19/17 10:25 Hexavitamin PO 1 tab DAILY [facility] Administration Ondansetron HCl 4 mg 12/16/17 02:33 Zofran Inj IVP Q6 PRN Nausea/Vomiting Rosuvastatin Calcium 10 mg 12/16/17 22:00 12/18/17 22:11 Crestor PO 10 mg HS [facility] Administration Thiamine HCl 100 mg 12/18/17 10:01 12/19/17 10:25 Vitamin B1 Tab PO 100 mg DAILY [facility] Administration Past Psychiatric History - Past Psychiatric History Previous Treatment History: Inpatient Pertinent Medical Hx (Current Medical&Sleep Prob, Allergies): Allergies Allergy/AdvReac Type Severity Reaction Status Date / Time No Known Allergies Allergy Verified 12/15/17 21:47 No Known Home Med 01/09/16 Review of Systems - Review of Systems Systems not reviewed;Unavailable: Altered Mental Status All systems: reviewed and no additional remarkable complaints except - Psychiatric Psychiatric: Anxiety, Irritability. absent: Hallucinations, Homicidal Ideation , Suicidal Ideation Mental Status Examination - Personal Presentation Personal Presentation: Looks stated age - Affect Affect: Constricted - Motor Activity Motor Activity: Calm - Reliability in Providing Information Reliability in Providing Information: Good, Other (Poor, due to altered mental status) - Speech Speech: Organized - Mood Mood: Depressed, Anxious, Neutral - Formal Thought Process Formal Thought Process: No Impairment - Obsessions/Compulsions Obsessions: No Compulsions: No - Cognitive Functions Orientation: Person, Place Sensorium: Alert Attention/Concentration: Easily distracted Abstract Thinking: [place] Estimate of Intelligence: Below average Judgement: Imparied, as evidence by: Poor judgement, Imparied, as evidence by: Lack of insight into illness - Risk Risk: Withdrawal, Diminished functioning - Limitations Limitations: Living alone DSM 5 DX - DSM 5 DSM 5 Diagnosis: Alcohol Use Disorder severe Alcohol withdrawal Depressive disorder - Recommended/Plan of Treatment Treatment Recommendations and Plan of Treatment: Depressive disorder Alcohol Use Disorder severe Alcohol withdrawal Librium taper As needed medications Gabapentin for augmentation if needed All risks, benefits and alternatives of medications, including no medications, discussed and the patient understood and agreed. Attend groups and activities Supportive therapy and psychoeducation [place] for abstinence CBT for relapse prevention Encourage MAT Refer to rehab or IOP Attend self-help groups as well [place] for smoking cessation and patch if needed
--- NOTE | 2017-12-19 12:29 | CP.PCM.DIS ---
<Eng,Reena - Last Filed: 12/19/17 15:26> Provider - Provider Date of Admission: 12/18/17 13:36 Attending physician: Miracle Saenz DO Consults: Dr. Kristofer De Souza Time Spent in preparation of Discharge (in minutes): 35 Diagnosis - Discharge Diagnosis (1) ETOH abuse Status: Chronic (2) Seizure Status: Resolved Comment: likely due to etoh abuse Hospital Course - Lab Results Lab Results: Most Recent Lab Values WBC 6.5 K/uL (4.8-10.8) 12/19/17 05:59 RBC 4.96 Mil/uL (4.40-5.90) 12/19/17 05:59 Hgb 15.6 g/dL (12.0-18.0) 12/19/17 05:59 Hct 44.0 % (35.0-51.0) 12/19/17 05:59 MCV 88.6 fL (80.0-94.0) 12/19/17 05:59 MCH 31.5 pg (27.0-31.0) H 12/19/17 05:59 MCHC 35.5 g/dL (33.0-37.0) 12/19/17 05:59 RDW 13.2 % (11.5-14.5) 12/19/17 05:59 Plt Count 192 K/uL (130-400) 12/19/17 05:59 MPV 8.4 fL (7.2-11.7) 12/19/17 05:59 Neut % (Auto) 68.1 % (50.0-75.0) 12/19/17 05:59 Lymph % (Auto) 19.8 % (20.0-40.0) L 12/19/17 05:59 Hayes % (Auto) 9.7 % (0.0-10.0) 12/19/17 05:59 Eos % (Auto) 1.8 % (0.0-4.0) 12/19/17 05:59 Baso % (Auto) 0.6 % (0.0-2.0) 12/19/17 05:59 Neut # (Auto) 4.4 K/uL (1.8-7.0) 12/19/17 05:59 Lymph # (Auto) 1.3 K/uL (1.0-4.3) 12/19/17 05:59 Hayes # (Auto) 0.6 K/uL (0.0-0.8) 12/19/17 05:59 Eos # (Auto) 0.1 K/uL (0.0-0.7) 12/19/17 05:59 Baso # (Auto) 0.0 K/uL (0.0-0.2) 12/19/17 05:59 PT 11.3 SECONDS (9.7-12.2) 12/17/17 07:07 INR 1.0 12/17/17 07:07 APTT 25 SECONDS (21-34) 12/17/17 07:07 Sodium 140 mmol/L (132-148) 12/19/17 05:59 Potassium 4.8 mmol/L (3.6-5.2) 12/19/17 05:59 Chloride 102 mmol/L (98-107) 12/19/17 05:59 Carbon Dioxide 27 mmol/L (22-30) 12/19/17 05:59 Anion Gap 16 (10-20) 12/19/17 05:59 BUN 13 mg/dL (9-20) 12/19/17 05:59 Creatinine 1.0 mg/dL (0.8-1.5) 12/19/17 05:59 Est GFR ( Amer) > 60 12/19/17 05:59 Est GFR (Non-Af Amer) > 60 12/19/17 05:59 POC Glucose (mg/dL) 87 mg/dL (65-110) 12/19/17 11:22 Random Glucose 89 mg/dL (75-110) 12/19/17 05:59 Hemoglobin A1c 5.6 % (4.2-6.5) 12/16/17 05:51 Calcium 8.8 mg/dl (8.6-10.4) 12/19/17 05:59 Magnesium 2.0 mg/dL (1.6-2.3) 12/15/17 21:55 Total Bilirubin 1.1 mg/dL (0.2-1.3) 12/19/17 05:59 AST 18 U/L (17-59) 12/19/17 05:59 ALT 9 U/L (21-72) L D 12/19/17 05:59 Alkaline Phosphatase 61 U/L (38-126) 12/19/17 05:59 Total Creatine Kinase 121 U/L (55-170) 12/19/17 05:59 Troponin I < 0.0120 ng/mL (0.00-0.120) 12/15/17 21:55 Total Protein 7.5 g/dL (6.3-8.3) 12/19/17 05:59 Albumin 3.9 g/dL (3.5-5.0) 12/19/17 05:59 Globulin 3.6 gm/dL (2.2-3.9) 12/19/17 05:59 Albumin/Globulin Ratio 1.1 (1.0-2.1) 12/19/17 05:59 Triglycerides 114 mg/dL (0-149) 12/16/17 05:51 Cholesterol 249 mg/dL (0-199) H 12/16/17 05:51 LDL Cholesterol Direct 194 mg/dL (0-129) H 12/16/17 05:51 HDL Cholesterol 47 mg/dL (30-70) 12/16/17 05:51 Vitamin B12 < 159 pg/mL (239-931) L 12/16/17 05:51 Folate > 20.0 ng/mL 12/16/17 05:51 TSH 3rd Generation 1.10 mIU/L (0.46-4.68) 12/16/17 05:51 Urine Color Yellow (YELLOW) 12/15/17 22:35 Urine Clarity Clear (Clear) 12/15/17 22:35 Urine pH 5.0 (5.0-8.0) 12/15/17 22:35 Ur Specific Harmans 1.019 (1.003-1.030) 12/15/17 22:35 Urine Protein Negative mg/dL (NEGATIVE) 12/15/17 22:35 Urine Glucose (UA) Normal mg/dL (Normal) 12/15/17 22:35 Urine Ketones Negative mg/dL (NEGATIVE) 12/15/17 22:35 Urine Blood Trace (NEGATIVE) H 12/15/17 22:35 Urine Nitrate Negative (NEGATIVE) 12/15/17 22:35 Urine Bilirubin Negative (NEGATIVE) 12/15/17 22:35 Urine Urobilinogen Normal mg/dL (0.2-1.0) 12/15/17 22:35 Ur Leukocyte Esterase Neg Abigail/uL (Negative) 12/15/17 22:35 Urine WBC (Auto) 1 /hpf (0-5) 12/15/17 22:35 Urine RBC (Auto) < 1 /hpf (0-3) 12/15/17 22:35 Ur Squamous Epith Cells < 1 /hpf (0-5) 12/15/17 22:35 Urine Bacteria Few (<OCC) H 12/15/17 22:35 Urine Sperm (Auto) Few /hpf (NONE) H 12/15/17 22:35 Urine Opiates Screen Negative (NEGATIVE) 12/15/17 22:35 Urine Methadone Screen Negative (NEGATIVE) 12/15/17 22:35 Ur Barbiturates Screen Negative (NEGATIVE) 12/15/17 22:35 Phenytoin < 3.0 ug/mL (10-20) L 12/15/17 21:55 Valproic Acid 34.5 ug/mL (50.0-100.0) L 12/19/17 05:59 Ur Phencyclidine Scrn Negative (NEGATIVE) 12/15/17 22:35 Ur Amphetamines Screen Negative (NEGATIVE) 12/15/17 22:35 U Benzodiazepines Scrn Negative (NEGATIVE) 12/15/17 22:35 U Oth Cocaine Metabols Negative (NEGATIVE) 12/15/17 22:35 U Cannabinoids Screen Negative (NEGATIVE) 12/15/17 22:35 Alcohol, Quantitative < 10 mg/dl (0-10) 12/15/17 21:55 RPR Nonreactive (NONREACTIVE) 12/16/17 05:51 Hepatitis A IgM Ab Negative (NEGATIVE) 12/16/17 05:51 Hep Bs Antigen Negative (NEGATIVE) 12/16/17 05:51 Hep B Core IgM Ab Negative (NEGATIVE) 12/16/17 05:51 Hepatitis C Antibody Negative (NEGATIVE) 12/16/17 05:51 HIV 1&2 Antibody Screen Negative (NEGATIVE) 12/16/17 05:51 - Hospital Course Hospital Course: CC: brought in by EMS for seizure activity PMD: Dr. Daniels on [facility] This patient is a 57yo M w/ a PMhx of hemorrhagic stroke, diagnosed at [facility], that was transferred to another center for treatment in 2016. Since then, he has not been on any medications as per the patient. He states that he drinks every day, 120oz of vodka, and 4-6 beers. He states the last thing he remembers before "waking up" in the hospital was drinking beers on Tuesday (it is now Tuesday at 1:50am seeing the patient). He states he has never had a seizure before...but upon further questioning he said he had one "a very long time ago" . The patient is extremely tangential. he is admitting to right arm pain, which he states started when he was working out. He works as a liquor stock or delivery clerk, walking deliveries only. I spoke to the roommate who states he drinks every day , and remembers seeing him leave for work around 4pm on 12/15 and was reportedly acting normally. He currently denies fevers/chills, PASCUAL, CP, SOB, abdominal pain, N/V/D, dysuria/freq/urg or lower extremity pain/swelling Hospital course Patient seen and examined by neurology Dr. Alfaro and psychiatry Dr. De Souza. EEG was done, which was normal with conclusion that seizure was likely due to alcohol withdrawal. Discharged with instructions below: Patient is cleared by Neurology for discharge and to follow up outpatient and to establish care with [facility]. Alcoholic's anonymous numbers given by social work Patient advised to decrease/cease alcohol intake. Patient encouraged to take medications as directed and to follow up at [facility] at [facility] (referral is in discharge summary). Follow up with [facility] for recheck for Vitamin B12 after 4 weeks of treatment Per Neurology: It is recommended to patient to follow up with an outpatient neurologist. If patient does not have any neurologist, may follow up with Dr. Alfaro/ Kristofer at [address] [facility] [id number]. . Patient discharged on these medications: take as directed. Vitamin B12 1000 mcg PO QWEEK Folic Acid 1mg PO QD Multivitamin 1 tab PO QD Crestor 40mg PO QHS Thiamine 100mg PO QD above is a brief summary of events that occurred during patient's stay. Please See EMR for full account - Date & Time of H&P Date of H&P: 12/19/17 Time of H&P: 14:54 Discharge Exam - Head Exam Head Exam: NORMOCEPHALIC Additional comments: some dried lesions on right forehead and right hand - Eye Exam Eye Exam: EOMI, Normal appearance - ENT Exam ENT Exam: Mucous Membranes Moist. absent: Mucous Membranes Dry - Neck Exam Neck exam: Full Rom - Respiratory Exam Respiratory Exam: NORMAL BREATHING PATTERN. absent: Accessory Muscle Use - Cardiovascular Exam Cardiovascular Exam: REGULAR RHYTHM, +S1, +S2 - GI/Abdominal Exam GI & Abdominal Exam: Soft. absent: Rebound, Rigid - Extremities Exam Extremities exam: full ROM, normal inspection - Neurological Exam Neurological exam: CN II-XII Intact - Psychiatric Exam Psychiatric exam: Normal Affect, Normal Mood - Skin Skin Exam: Dry, Intact, Normal Color, Warm Discharge Plan - Discharge Medications Prescriptions: Cyanocobalamin [Vitamin B12 1000 mcg Tab] 1,000 mcg PO Q7D #4 tab Folic Acid 1 mg PO DAILY #28 tab Multivitamins [Hexavitamin] 1 tab PO DAILY #28 tab Rosuvastatin Calcium [Crestor] 40 mg PO HS #28 tab Thiamine [Vitamin B1 Tab] 100 mg PO DAILY #28 tab - Follow Up Plan Condition: FAIR Disposition: HOME/ ROUTINE Instructions: Seizures, Adult (DC), Alcohol Abuse and Alcoholism (DC), Why Vaccines Are Important for Everyone Additional Instructions: Patient is cleared by Neurology for discharge. To follow up outpatient and to establish care with [facility]. Alcoholic's anonymous numbers given by social work Patient advised to decrease/cease alcohol intake. Patient encouraged to take medications as directed and to follow up at [facility] at [facility] (referral is in discharge summary). Follow up with [facility] for recheck for Vitamin B12 in 4 weeks Per Neurology: It is recommended to patient to follow up with an outpatient neurologist. If patient does not have any neurologist, may follow up with Dr. Alfaro/ Kristofer at [address] [place] [address]. [address] [facility] [id number]. . Patient discharged on these medications: take as directed. Vitamin B12 1000 mcg PO QD Folic Acid 1mg PO QD Multivitamin 1 tab PO QD Crestor 40mg PO QHS Thiamine 100mg PO BID Referrals: [facility] [Outside] Tony Miner MD [Staff Provider] - <Miracle Saenz V - Last Filed: 12/19/17 16:46> Provider - Provider Date of Admission: 12/18/17 13:36 Attending physician: Miracle Saenz, [facility] Course - Lab Results Lab Results: Most Recent Lab Values WBC 6.5 K/uL (4.8-10.8) 12/19/17 05:59 RBC 4.96 Mil/uL (4.40-5.90) 12/19/17 05:59 Hgb 15.6 g/dL (12.0-18.0) 12/19/17 05:59 Hct 44.0 % (35.0-51.0) 12/19/17 05:59 MCV 88.6 fL (80.0-94.0) 12/19/17 05:59 MCH 31.5 pg (27.0-31.0) H 12/19/17 05:59 MCHC 35.5 g/dL (33.0-37.0) 12/19/17 05:59 RDW 13.2 % (11.5-14.5) 12/19/17 05:59 Plt Count 192 K/uL (130-400) 12/19/17 05:59 MPV 8.4 fL (7.2-11.7) 12/19/17 05:59 Neut % (Auto) 68.1 % (50.0-75.0) 12/19/17 05:59 Lymph % (Auto) 19.8 % (20.0-40.0) L 12/19/17 05:59 Hayes % (Auto) 9.7 % (0.0-10.0) 12/19/17 05:59 Eos % (Auto) 1.8 % (0.0-4.0) 12/19/17 05:59 Baso % (Auto) 0.6 % (0.0-2.0) 12/19/17 05:59 Neut # (Auto) 4.4 K/uL (1.8-7.0) 12/19/17 05:59 Lymph # (Auto) 1.3 K/uL (1.0-4.3) 12/19/17 05:59 Hayes # (Auto) 0.6 K/uL (0.0-0.8) 12/19/17 05:59 Eos # (Auto) 0.1 K/uL (0.0-0.7) 12/19/17 05:59 Baso # (Auto) 0.0 K/uL (0.0-0.2) 12/19/17 05:59 PT 11.3 SECONDS (9.7-12.2) 12/17/17 07:07 INR 1.0 12/17/17 07:07 APTT 25 SECONDS (21-34) 12/17/17 07:07 Sodium 140 mmol/L (132-148) 12/19/17 05:59 Potassium 4.8 mmol/L (3.6-5.2) 12/19/17 05:59 Chloride 102 mmol/L (98-107) 12/19/17 05:59 Carbon Dioxide 27 mmol/L (22-30) 12/19/17 05:59 Anion Gap 16 (10-20) 12/19/17 05:59 BUN 13 mg/dL (9-20) 12/19/17 05:59 Creatinine 1.0 mg/dL (0.8-1.5) 12/19/17 05:59 Est GFR ( Amer) > 60 12/19/17 05:59 Est GFR (Non-Af Amer) > 60 12/19/17 05:59 POC Glucose (mg/dL) 87 mg/dL (65-110) 12/19/17 11:22 Random Glucose 89 mg/dL (75-110) 12/19/17 05:59 Hemoglobin A1c 5.6 % (4.2-6.5) 12/16/17 05:51 Calcium 8.8 mg/dl (8.6-10.4) 12/19/17 05:59 Magnesium 2.0 mg/dL (1.6-2.3) 12/15/17 21:55 Total Bilirubin 1.1 mg/dL (0.2-1.3) 12/19/17 05:59 AST 18 U/L (17-59) 12/19/17 05:59 ALT 9 U/L (21-72) L D 12/19/17 05:59 Alkaline Phosphatase 61 U/L (38-126) 12/19/17 05:59 Total Creatine Kinase 121 U/L (55-170) 12/19/17 05:59 Troponin I < 0.0120 ng/mL (0.00-0.120) 12/15/17 21:55 Total Protein 7.5 g/dL (6.3-8.3) 12/19/17 05:59 Albumin 3.9 g/dL (3.5-5.0) 12/19/17 05:59 Globulin 3.6 gm/dL (2.2-3.9) 12/19/17 05:59 Albumin/Globulin Ratio 1.1 (1.0-2.1) 12/19/17 05:59 Triglycerides 114 mg/dL (0-149) 12/16/17 05:51 Cholesterol 249 mg/dL (0-199) H 12/16/17 05:51 LDL Cholesterol Direct 194 mg/dL (0-129) H 12/16/17 05:51 HDL Cholesterol 47 mg/dL (30-70) 12/16/17 05:51 Vitamin B12 < 159 pg/mL (239-931) L 12/16/17 05:51 Folate > 20.0 ng/mL 12/16/17 05:51 TSH 3rd Generation 1.10 mIU/L (0.46-4.68) 12/16/17 05:51 Urine Color Yellow (YELLOW) 12/15/17 22:35 Urine Clarity Clear (Clear) 12/15/17 22:35 Urine pH 5.0 (5.0-8.0) 12/15/17 22:35 Ur Specific Harmans 1.019 (1.003-1.030) 12/15/17 22:35 Urine Protein Negative mg/dL (NEGATIVE) 12/15/17 22:35 Urine Glucose (UA) Normal mg/dL (Normal) 12/15/17 22:35 Urine Ketones Negative mg/dL (NEGATIVE) 12/15/17 22:35 Urine Blood Trace (NEGATIVE) H 12/15/17 22:35 Urine Nitrate Negative (NEGATIVE) 12/15/17 22:35 Urine Bilirubin Negative (NEGATIVE) 12/15/17 22:35 Urine Urobilinogen Normal mg/dL (0.2-1.0) 12/15/17 22:35 Ur Leukocyte Esterase Neg Abigail/uL (Negative) 12/15/17 22:35 Urine WBC (Auto) 1 /hpf (0-5) 12/15/17 22:35 Urine RBC (Auto) < 1 /hpf (0-3) 12/15/17 22:35 Ur Squamous Epith Cells < 1 /hpf (0-5) 12/15/17 22:35 Urine Bacteria Few (<OCC) H 12/15/17 22:35 Urine Sperm (Auto) Few /hpf (NONE) H 12/15/17 22:35 Urine Opiates Screen Negative (NEGATIVE) 12/15/17 22:35 Urine Methadone Screen Negative (NEGATIVE) 12/15/17 22:35 Ur Barbiturates Screen Negative (NEGATIVE) 12/15/17 22:35 Phenytoin < 3.0 ug/mL (10-20) L 12/15/17 21:55 Valproic Acid 34.5 ug/mL (50.0-100.0) L 12/19/17 05:59 Ur Phencyclidine Scrn Negative (NEGATIVE) 12/15/17 22:35 Ur Amphetamines Screen Negative (NEGATIVE) 12/15/17 22:35 U Benzodiazepines Scrn Negative (NEGATIVE) 12/15/17 22:35 U Oth Cocaine Metabols Negative (NEGATIVE) 12/15/17 22:35 U Cannabinoids Screen Negative (NEGATIVE) 12/15/17 22:35 Alcohol, Quantitative < 10 mg/dl (0-10) 12/15/17 21:55 RPR Nonreactive (NONREACTIVE) 12/16/17 05:51 Hepatitis A IgM Ab Negative (NEGATIVE) 12/16/17 05:51 Hep Bs Antigen Negative (NEGATIVE) 12/16/17 05:51 Hep B Core IgM Ab Negative (NEGATIVE) 12/16/17 05:51 Hepatitis C Antibody Negative (NEGATIVE) 12/16/17 05:51 HIV 1&2 Antibody Screen Negative (NEGATIVE) 12/16/17 05:51 Clinical Quality Measures - CQM - Stroke Antithrombotic Prescribed: Medical Contraindication Present Contranindication/Reason for not providing: Risk for Bleeding Anticoagulation Prescribed for Atrial Flutter, Atrial Fibrillation and History of:: Not Applicable Statin prescribed: Yes Attending/Attestation - Attestation I have personally seen and examined this patient.: Yes I have fully participated in the care of the patient.: Yes I have reviewed all pertinent clinical information, including history, physical exam and plan: Yes Notes (Text): Patient seen, examined and case discussed with medical sales representative. Patient seen at bedside. patient denies acute complaints. Discussed with neurology nurse practitioner, EEG is normal, per neurology stable for discharge, does not need Depakote upon discharge; likely seizure is related to patient's alcohol use. Patient will receive upon discharge from social work; education in regards to Alcoholic Anonymous. Discussed with resident, patient to receive prescriptions for Thiamine, MVI, Folic Acid, Statin, and Vitamin B12 1000mcg once a week for 4 weeks (4 tabs). patient will need to establish care; Information for the [facility] to be provided wherein patient to follow-up for vitamin B12 level. Discharge Diagnoses 1). Seizure secondary to Alcohol Use-->resolved * Neurology (Dr. Alfaro) on board-->help appreciated * I discussed with neurology, patient stable for discharge. EEG is normal and does not need Depakote upon discharge. * My colleague, Dr Tammi Fuller spoke with his friend and employer at [employer] Dada Federico ([phone]) at length on 12/17/17 and he explained that the patient has a long history of forgetfullness/memory issues, taking time to answer questions, and stated that patient was "slow". I spoke with Mr. Caballero via patient 's phone that was placed on speaker phone and Mr. Caballero explained that the patient was at his baseline mental status. Explained to patient and Mr. Caballero that he would likely be discharged on Tuesday12/19/17 after monitoring him after starting of antiseizure medication and after workup was complete (EEG) * CT Head showed Right Temporal Encephalomalecia, volume loss, sinus disease ( see full report) 2). Hx Hemorrhagic CVA-->chronic * Crestor 10 mg PO HS * NO ASA considering history of hemorrhagic CVA * CT Head showed Right Temporal Encephalomalecia, volume loss, sinus disease ( see full report) 3). ETOH Use/Potential Withdrawal-->Stable * Librium 25 mg PO Q4H PRN * Folic Acid 1 mg PO 1x/day * Thiamine 100 mg PO 1x/day * MVI PO 1x/day * NO signs of withdrawal on exam; day 4 of hospitalization 4). Low Vitamin B12-->chronic * Given IM 1,000 mcg in ER upon admission * Vitamin B12 1,000 mcg once a week for next 4 weeks, will need a follow-up B12 level when he establishes care with PMD 5). 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 Caballero of witnessing seizure and EMS was called. * CPK has normalized day of discharge 6). Prophylaxis * Tylenol 650 mg PO Q6H PRN Fever * SCDs * NO PPI or H2 issac indicated * Counseled patient on discontinuing use of chewing tobacc
--- NOTE | 2017-12-20 13:41 | EEG ---
DATE: 12/16/2017 Technical Information: Electrodes were placed according to the 10-20 [employer] electrode system by development technologist. Total of 23 electrodes (21 EEG and 2 EKG) were placed. EEG activity was digitally recorded referentially to P1/P2 or A1/A2 electrodes. Continuous monitoring with EEG was performed using digital analysis for spike detection. The [employer] spike and seizure detection algorithms were used for digital EEG analysis throughout the monitoring period to screen the EEG in real-time and silke the data file with pointers to electrographic seizures and interictal discharges. EEG was screened for electrographic seizures and interictal discharges by a technologist. Physician, epileptologist reviewed detections as well as extensive random samples and whole EEG study in detail. Digital EEG Analysis: Was carried out including FFT (Fast Fourier Transform), R2D2 (Rhythmicity Run Detection and Display), Relative Asymmetry Spectrogram, and voltage plot by the [employer] Software. The qualitative EEG analysis and the voltage plot mapping were used for detection of foci of paroxysmal and abnormal electrical cortical activity. General Description: Background Rhythm: There is a well-formed, 8-10 Hz posterior dominant rhythm that is reactive, symmetric, and attenuates with eye opening. There was a normal amount of frontal beta noted bilaterally. There is no sleep recorded. Activation Procedures: Photic stimulation: There is no driving noted. Hyperventilation: There is slowing noted that is self-remitted. Abnormal Activity: There are no focal epileptiform discharges noted. No clinical or subclinical seizures noted. Impression: This is a normal awake and drowsy EEG. Clinical correlation is required. There was increased data due to medication effect. Alban Alfaro MD
== END 2017-12-19 15:00 | disposition home or self-care (01) | DRG 890 ==
LOC: C.ER 21:21 → C.9E 12-16 01:13 → C.3T 12-16 11:03 → OBSVTOIN 12-18 13:36
PROVIDERS: ADMIT Internal Medicine; ATTEND Hospitalist
DX: G40.909 Epilepsy, unspecified, not intractable, without status epilepticus (principal); F32.9 Major depressive disorder, single episode, unspecified; Z72.0 Tobacco use; Z86.73 Personal history of transient ischemic attack (TIA), and cerebral infarction without residual deficits; F10.10 Alcohol abuse, uncomplicated; Y90.9 Presence of alcohol in blood, level not specified; Z91.81 History of falling